=== PATIENT | female | born 1990 | race Two or more races ===

== ENCOUNTER 2022-09-14 08:30 | Outpatient (CLI) | payer OTHER | END 2022-09-14 11:51 | disposition home or self-care (01) | LOC: PRENATAL 08:30 | PROVIDERS: ATTEND Obstetrics & Gynecology Maternal & Fetal Medicine | DX: O36.80X0 Pregnancy with inconclusive fetal viability, not applicable or unspecified (principal); Z36.82 Encounter for antenatal screening for nuchal translucency; Z36.9 Encounter for antenatal screening, unspecified; O76 Abnormality in fetal heart rate and rhythm complicating labor and delivery; Z3A.11 11 weeks gestation of pregnancy ==

== ENCOUNTER → 2022-09-28 | Emergency (ER) | payer OTHER ==
[~2022-09-28] VITALS: Ht 160 cm; Wt 81.6 kg
[~2022-09-28] MED LIST: ZOFRAN8 MG PO
== END | disposition home or self-care (01) ==
LOC: ER 11:12
PROVIDERS: General Practice
DX: O98.519 Other viral diseases complicating pregnancy, unspecified trimester (principal); U07.1 COVID-19

== ENCOUNTER → 2023-02-10 08:54 | Outpatient (CLI) | payer OTHER | END | disposition home or self-care (01) | LOC: PRENATAL 08:54 | PROVIDERS: ATTEND Obstetrics & Gynecology Maternal & Fetal Medicine | DX: O26.849 Uterine size-date discrepancy, unspecified trimester (principal); O36.8199 Decreased fetal movements, unspecified trimester, other fetus; Z3A.33 33 weeks gestation of pregnancy ==

== ENCOUNTER 2023-02-22 17:19 | Outpatient (CLI) | payer OTHER ==
[2023-02-22] MEDS ORDERED: PRENATAL TABLE1 EAC4 PO (17:46)
[2023-02-22] MEDS ORDERED: PEPCID AC20 MG PO (17:46)
== END 2023-02-22 20:11 | disposition home or self-care (01) ==
LOC: OBS/DEL 17:19
PROVIDERS: ATTEND Obstetrics & Gynecology
DX: O26.893 Other specified pregnancy related conditions, third trimester (principal); Z3A.34 34 weeks gestation of pregnancy; Z91.013 Allergy to seafood

== ENCOUNTER 2023-03-11 08:12 | Inpatient (IN) | payer OTHER ==
[~2023-03-11] VITALS: Ht 160 cm; Wt 82.6 kg
[~2023-03-11 08:12] MED LIST changes: +PEPCID AC20 MG PO; +PRENATAL TABLE1 EAC4 PO
[2023-03-24] MEDS ORDERED: RINGERS SOLUTION,LACTATED 1,000 ML IV SCH (06:15)
[2023-03-24] MEDS ORDERED: IRON18 MG PO (06:36)
[2023-03-24 07:15] LABS: HEMATOCRIT 29.4 % (36.0-45.00); HEMOGLOBIN 9.8 g/dL (12.0-15.00); MEAN CELL VOLUME 80.2 fL (80.00-100.00); MEAN CORPUSCULAR HEMOGLOBIN 26.8 pg (27.00-32.0); MEAN CORPUSCULAR HGB CONC 33.4 g/dl (32.0-36.0); PLATELET COUNT 152 K/uL (150-450); RED BLOOD COUNT 3.67 M/uL (4.00-6.00); RED CELL DISTRIBUTION WIDTH 15.8 % (11.5-14.5)
[2023-03-24] MEDS ORDERED: OXYTOCIN 500 ML IV ONE (07:15)
[2023-03-24 07:26] LABS: ALBUMIN 2.7 gm/dL (3.4-5.0); BILIRUBIN TOTAL 0.82 mg/dL (0.3-1.2); CALCIUM 8.9 mg/dL (8.5-10.1); CREATININE SERUM 0.5 mg/dL (0.55-1.02); GFR 143.9; GLOBULINA 3.4 G/DL (2.4-3.5); POTASSIUM 3.66 mEq/L (3.5-5.1); TOTAL PROTEIN 6.1 gm/dL (6.4-8.2)
[2023-03-24 09:06] LABS: INR 0.97; PARTIAL THROMBOPLASTIN TIME 27.6 SECONDS (22.0-34.0); PROTHROMBIN TIME 10.2 SECONDS (9.0-11.5)
[2023-03-24] MEDS ORDERED: CHLORHEXIDINE GLUCONATE 120 ML BOTTLE TOP ONE (14:09)
[2023-03-24] MEDS ORDERED: ERYTHROMYCIN BASE 1 GM TUBE OP ONE (14:09)
[2023-03-24] MEDS ORDERED: OXYTOCIN 10 UNITS/ML VIAL ONE (14:10)
[2023-03-24] MEDS ORDERED: MEPERIDINE HCL/PF 25 MG/ML VIAL IV SCH (14:45)
[2023-03-24] MEDS ORDERED: PROMETHAZINE HCL 25 MG/ML AMPUL IV SCH (14:45)
[2023-03-24] MEDS ORDERED: ERYTHROMYCIN BASE 1 GM TUBE OP SCH (16:00)
[2023-03-24] MEDS ORDERED: IBUprofen 400 MG TABLET PO PRN (16:00)
[2023-03-24] MEDS ORDERED: CHLORHEXIDINE GLUCONATE 120 ML BOTTLE TP SCH (16:00)
[2023-03-24] MEDS ORDERED: LIDOCAINE HCL 1% 200MG/20ML VIAL IJ SCH (16:00)
[2023-03-24] MEDS ORDERED: OXYTOCIN 20 UNITS/1000ML RL PIGGYBAG IV STA (16:59)
[2023-03-24] MEDS ORDERED: DOCUSATE SODIUM 100MG CAP PO SCH (17:00)
[2023-03-24] MEDS ORDERED: BENZOCAINE/MENTHOL 90 ML BOTTLE TOP SCH (17:00)
[2023-03-25 08:48] LABS: HEMATOCRIT 27.8 % (36.0-45.00); HEMOGLOBIN 9.3 g/dL (12.0-15.00); MEAN CELL VOLUME 80.5 fL (80.00-100.00); MEAN CORPUSCULAR HEMOGLOBIN 26.9 pg (27.00-32.0); MEAN CORPUSCULAR HGB CONC 33.3 g/dl (32.0-36.0); PLATELET COUNT 134 K/uL (150-450); RED BLOOD COUNT 3.46 M/uL (4.00-6.00); RED CELL DISTRIBUTION WIDTH 15.8 % (11.5-14.5)
== END 2023-03-26 13:37 | disposition home or self-care (01) | DRG 807 ==
LOC: LDR 03-24 05:48 → OB/GYN 03-24 18:03
PROVIDERS: ADMIT Obstetrics & Gynecology; ATTEND Obstetrics & Gynecology
PROC: 10E0XZZ Delivery of Products of Conception, External Approach (ICD-10-PCS; principal; 2023-03-24)
PROC: 4A1HXCZ Monitoring of Products of Conception, Cardiac Rate, External Approach (ICD-10-PCS; 2023-03-24)
DX: O80 Encounter for full-term uncomplicated delivery (principal); Z37.0 Single live birth; Z3A.39 39 weeks gestation of pregnancy; Z20.822 Contact with and (suspected) exposure to COVID-19